=== PATIENT | male | born 1975 | race Asian ===

== ENCOUNTER 2016-07-23 08:59 | Emergency (ER) | payer BC ==
[~2016-07-23] VITALS: Ht 170.2 cm; Wt 101.3 kg
[2016-07-23 09:05] VITALS: BP 156/103
== END 2016-07-23 09:50 | disposition home or self-care (01) ==
LOC: ED 08:59
DX: H10.9 Unspecified conjunctivitis (principal); I10 Essential (primary) hypertension; E78.5 Hyperlipidemia, unspecified